=== PATIENT | female | born 1950 | race Caucasian/White ===

== ENCOUNTER 2019-06-03 23:21 | Emergency (ER) | payer BC, OTHER ==
--- NOTE | 2019-06-04 00:27 | Emergency Department Record ---
History of Present Illness - General Chief complaint: Lower Extremity Pain Stated complaint: LLE PAIN Time Seen by Provider: 06/04/19 00:17 Source: Patient Mode of Arrival: Ambulatory - History of Present Illness Initial comments: The patient states that she has had intermittent pain in her posterior left thigh for the past week. Today at work her co-worker told her to "get checked for a blood clot in her legs becquse he knew someone who lost their leg from a blood clot." She denies injury, but certain movements may or may not cause her to have pain in her thigh. It occasionally goes even down the outside of her calf muscle. Earlier it was bad but now it has improved. she has no bowel or bladder problems, and denies fevers, chills, procedures on her back. MD Complaint: Extremity pain (intermittent) Onset/Timin -: Week(s) Location: Left, Lower Leg, Thigh Radiation: Distal Severity scale (1-10): 5 Quality: Aching Improves with: Immobilization Worsens with: Walking, Weight bearing Associated Symptoms: Denies other symptoms - Related Data Previous Rx's Medication Instructions Recorded Cyclobenzaprine HCl [Flexeril] 10 mg PO TID #15 tablet 06/04/19 Ibuprofen [Motrin] 800 mg PO Q8H #21 tab 06/04/19 Allergies Allergy/AdvReac Type Severity Reaction Status Date / Time No Known Drug Allergies Allergy Verified 06/03/19 23:31 Travel Screening - Travel/Exposure Within Last 30 Days Have you traveled within the last 30 days?: No - Travel/Exposure Within Last Year Have you traveled outside the [place] in the last year?: No - Additonal Travel Details Have you been exposed to anyone with a communicable illness?: No - Travel Symptoms Symptom Screening: None Review of Systems Reviewed: No additional complaints except as noted below Constitutional: Reports: As per HPI. Denies: Chills, Fever, Malaise, Night sweats, Weakness, Weight change Eyes: Reports: As per HPI. Denies: Eye discharge, Eye pain, Photophobia, Vision change ENT: Reports: As per HPI. Denies: Congestion, Dental pain, Ear pain, Epistaxis, Hearing loss, Throat pain Respiratory: Reports: As per HPI. Denies: Cough, Dyspnea, Hemoptysis, Stridor, Wheezes Cardiovascular: Reports: As per HPI. Denies: Arrhythmia, Chest pain, Dyspnea on exertion, Edema, Murmurs, Orthopnea, Palpitations, Paroxysmal nocturnal dyspn ea, Rheumatic Fever, Syncope Endocrine: Reports: As per HPI. Denies: Fatigue, Heat or cold intolerance, Polydipsia, Polyuria Gastrointestinal: Reports: As per HPI. Denies: Abdominal pain, Constipation, Diarrhea, Hematemesis, Hematochezia, Melena, Nausea, Vomiting Genitourinary: Reports: As per HPI. Denies: Abnormal menses, Discharge, Dyspareunia, Dysuria, Frequency, Hematuria, Incontinence, Retention, Urgency Musculoskeletal: Reports: As per HPI. Denies: Arthralgia, Back pain, Gout, Joint swelling, Myalgia, Neck pain Skin: Reports: As per HPI. Denies: Bruising, Change in color, Change in hair/nails, Lesions, Pruritus, Rash Neurological: Reports: As per HPI. Denies: Abnormal gait, Confusion, Headache, Numbness, Paresthesias, Seizure, Tingling, Tremors, Vertigo, Weakness Psychiatric: Reports: As per HPI. Denies: Anxiety, Auditory hallucinations, Depression, Homicidal thoughts, Suicidal thoughts, Visual hallucinations Hematological/Lymphatic: Reports: As per HPI. Denies: Anemia, Blood Clots, Easy bleeding, Easy bruising, Swollen glands Past Medical History - SOCIAL HISTORY Smoking Status: Current every day smoker Alcohol Use: Occasional Drug Use: None - RESPIRATORY Hx Respiratory Disorders: No - CARDIOVASCULAR Hx Cardio Disorders: Yes Hx Hypertension: Yes - NEURO Hx Neuro Disorders: No - GI Hx GI Disorders: Yes Hx Pancreatitis: Yes (one year ago) Hx of Polyps: Yes - Hx Genitourinary Disorders: No - ENDOCRINE Hx Endocrine Disorders: No - MUSCULOSKELETAL Hx Musculoskeletal Disorders: No - PSYCH Hx Psych Problems: No - HEMATOLOGY/ONCOLOGY Hx Hematology/Oncology Disorders: Yes Hx Cancer: Yes (skin cancer-nose) Comment:: non-melanoma Family Medical History Any Significant Family History?: Yes Hx Cancer: Father, Brother/Sister Hx HTN: Mother, Brother/Sister Physical Exam - General General Appearance: Alert, Oriented x3, Cooperative, No acute distress - Head Head exam: Normal inspection - Eye Eye exam: Normal appearance, PERRL, EOMI. negative: Conjunctival injection, Nystagmus Pupils: Normal accommodation - ENT ENT exam: Normal exam, Mucous membranes moist, Normal external ear exam, Normal orophraynx, TM's normal bilaterally Ear exam: Normal external inspection. negative: External canal tenderness Nasal Exam: Normal inspection. negative: Discharge, Sinus tenderness Mouth exam: Normal external inspection, Tongue normal Teeth exam: Normal inspection. negative: Dental caries Throat exam: Normal inspection. negative: Tonsillar erythema, Tonsillar exudate - Neck Neck exam: Normal inspection, Full ROM. negative: Lymphadenopathy, Meningismus, Tenderness - Respiratory Respiratory exam: Normal lung sounds bilaterally. negative: Respiratory distress - Cardiovascular Cardiovascular Exam: Regular rate, Normal rhythm, Normal heart sounds - GI/Abdominal GI/Abdominal exam: Soft. negative: Distended, Guarding, Tenderness - Rectal Rectal exam: Deferred - exam: Deferred - Extremities Extremities exam: Normal inspection, Full ROM, Normal capillary refill. negative: Calf tenderness, Pedal edema, Tenderness - Back Back exam: Reports: Normal inspection, Full ROM. Denies: CVA tenderness (R), CVA tenderness (L), Muscle spasm, Rash noted, Tenderness, Vertebral tenderness - Neurological Neurological exam: Alert, CN II-XII intact, Normal gait, Oriented X3, Reflexes normal, Other (able to toe walk and heel walk, no motor defecits; reflexes equal bilaterally, pulses intact, no calf tenderness, no swelling.). negative: Altered, Motor sensory deficit - Psychiatric Psychiatric exam: Normal affect, Normal mood - Skin Skin exam: Dry, Intact, Normal color, Warm Course Vital Signs 06/03/19 23:30 Temperature 98.8 F Pulse Rate [ 70 Left] Respiratory 16 Rate Blood Pressure 195/97 [Left] Pulse Ox 99 - Reevaluation(s) Reevaluation #1: 06/04/19 00:43 Discussed with patient about obtaining xrays tonight or in her doctor's office next week. If she improves with medical management she may not need xrays or further studies. X rays offered to her tonight but patient prefers to have them next week if she does not improve on motrin and flexeril. Family member with her is in agreement. Reevaluation #2: 06/04/19 00:46 Patient was instructed to eat when she gets home and take 800 mg motrin. Medical Decision Making - Management Options MDM Management: No Additional Work-up Planned Disposition Clinical Impression: Acute lumbar myofascial strain Qualifiers: Encounter type: initial encounter Qualified Code(s): S39.012A - Strain of muscle, fascia and tendon of lower back, initial encounter Disposition: Home, Self-Care Condition: (1) Good Instructions: Low Back Strain (ED), Lower Back Exercises (ED), Core Strengthening Exercises (ED) Additional Instructions: Take flexeril as directed. Take motrin 800 mg with food three times daily. Limit lifting bending twisting as much as possible. Heat or warm soaks to area if helpful. PCP follow up in office this week for recheck of back and hip, and for recheck of blood pressure which was elevated this visit. . Prescriptions: Cyclobenzaprine HCl [Flexeril] 10 mg PO TID #15 tablet Ibuprofen [Motrin] 800 mg PO Q8H #21 tab Quality - Quality Measures Quality Measures: N/A - Blood Pressure Screening Does Patient Have Any of the Following: No Blood Pressure Classification: Hypertensive Reading Systolic Measurement: 195 Diastolic Measurement: 97 Screening for High Blood Pressure: Patient Exclusion, Hx of HTN [[id number]]
[2019-06-04] MEDS ORDERED: CYCLOBENZAPRINE 10MG TABLET PO ONE (00:46)
== END 2019-06-04 01:01 | disposition home or self-care (01) ==
LOC: ER 23:21
DX: S39.012A Strain of muscle, fascia and tendon of lower back, initial encounter (principal); M79.652 Pain in left thigh; I10 Essential (primary) hypertension; F17.210 Nicotine dependence, cigarettes, uncomplicated; X58.XXXA Exposure to other specified factors, initial encounter
CPT/HCPCS: 99282